=== PATIENT | female | born 1995 | race Hispanic/Latino ===

== ENCOUNTER 2017-12-04 17:58 | Emergency (ER) | payer BC ==
[2017-12-04 18:18] VITALS: BMI 20.9
[2017-12-04] MEDS ORDERED: Sodium Chloride 0.9% 1,000 ML IV STA ×2 (18:24→21:18)
--- NOTE | 2017-12-04 18:26 | ED PDOC ---
Arrival/HPI - General Chief Complaint: Abdominal Pain Time Seen by Provider: 12/04/17 18:23 Historian: Patient, Parent - History of Present Illness Narrative History of Present Illness (Text): 12/04/17 18:27 22 y/o female, pmh including renal stone, nkda, c/o acute onset of rt. flank and rt. lower quadrant pain started this morning. Pt. that she has sharp rt. flank pain, radiating to the RLQ region, on and off, associated with urinary frequency, no fever or chills, no headache or night sweat, no dizziness, no palpitation, no rash, no pelvic pain, no vaginal discharge or bleeding, no other medical or psychological complaints. Past Medical History - Provider Review Nursing Documentation Reviewed: Yes - Tetanus Immunization Tetanus Immunization: Unknown - Past Medical History Past Medical History: No Previous - Psychiatric Hx Substance Use: No - Past Surgical History Past Surgical History: No Previous - Suicidal Assessment Feels Threatened In Home Enviroment: No Family/Social History - Physician Review Nursing Documentation Reviewed: Yes Family/Social History: Unknown Family HX Smoking Status: Never Smoked Hx Alcohol Use: No Hx Substance Use: No Hx Substance Use Treatment: No Allergies/Home Meds Allergies/Adverse Reactions: Allergies No Known Allergies Allergy (Verified 12/04/17 18:18) Home Medications: Home Meds Medication Instructions Recorded Confirmed Norgestrel-Ethinyl Estradiol 1 tab PO DAILY 12/04/17 12/04/17 [Oki-Brxomwlf-21 Tablet] Phenazopyridine HCl [Pyridium] 200 mg PO TID 12/04/17 12/04/17 Sulfamethoxazole/Trimethoprim 1 tab PO Q12H 12/04/17 12/04/17 [Bactrim DS Tab] Review of Systems - Review of Systems Constitutional: absent: Fatigue, Fevers Eyes: absent: Vision Changes ENT: absent: Hearing Changes Respiratory: absent: SOB, Cough Cardiovascular: absent: Chest Pain Gastrointestinal: Abdominal Pain. absent: Diarrhea, Nausea, Vomiting Genitourinary Female: Frequency. absent: Dysuria, Hematuria, Urine Output Changes, Vaginal Bleeding, Vaginal Discharge Musculoskeletal: Back Pain. absent: Arthralgias, Neck Pain, Joint Swelling Skin: absent: Rash, Pruritis Neurological: absent: Headache, Dizziness Psychiatric: absent: Anxiety, Depression, Suicidal Ideation Physical Exam Vital Signs Reviewed: Yes Vital Signs Temp Pulse Resp BP Pulse Ox 12/04/17 18:20 99.3 F 104 H 20 125/66 99 Temperature: Afebrile Blood Pressure: Normal Pulse: Tachycardic Respiratory Rate: Normal Appearance: Positive for: Well-Appearing Pain Distress: Severe Mental Status: Positive for: Alert and Oriented X 3 - Systems Exam Head: Present: Atraumatic, Normocephalic Pupils: Present: PERRL Extroacular Muscles: Present: EOMI Conjunctiva: Present: Normal Mouth: Present: Moist Mucous Membranes Neck: Present: Normal Range of Motion Respiratory/Chest: Present: Clear to Auscultation, Good Air Exchange. No: Respiratory Distress, Accessory Muscle Use Cardiovascular: Present: Regular Rate and Rhythm, Normal S1, S2. No: Murmurs Abdomen: Present: Tenderness (rt. flank). No: Distention, Peritoneal Signs, Rebound, Guarding Back: Present: Normal Inspection, CVA Tenderness (rt. flank). No: Midline Tenderness, Paraspinal Tenderness, Pain with Leg Raise, Decubitus Ulcer Upper Extremity: Present: Normal Inspection. No: Cyanosis, Edema Lower Extremity: Present: Normal Inspection, Neurovascularly Intact. No: Edema Neurological: Present: GCS=15, CN II-XII Intact, Speech Normal, Motor Func Grossly Intact, Gait Normal, Memory Normal Skin: Present: Warm, Dry, Normal Color. No: Rashes Psychiatric: Present: Alert, Oriented x 3, Normal Insight, Normal Concentration Medical Decision Making ED Course and Treatment: 12/04/17 18:33 -Labs/ua/urine hcg -CT abdomen and pelvis -IV toradol/fluid -Observe and reassess 12/04/17 21:19 -Urine hcg is negative -CT abdomen and pelvis show 3 mm calculus is noted at the right UVJ producing mild hydroureteronephrosis. There is delay right urogram, comparing to the left side. -Labs show wbc 14.7 -UA show +UTI, IV rocephine ordered. -Pt. feels still having pain, morphine 2mg IV ordered with IV rocephine/fluid/flomax/strainer for stone. -Pt. is having chills in the ER and I told her that I am concerning for her which this is not a good sign but she said she is tired?. -I discussed with the patient about the labs and radiology study, recommend admission for IV hydration/antibiotic and urologist evaluation. Pt. stated that she would need to think about it. 12/04/17 22:25 -I checked the [facility] report, and I would give percocet for her pain control. -Pt. refused to be admitted, risks and benefits explained as she has infected stone. Pt. stated that she feels well, no pain, no need to be admitted, discussed with her mother as well and mother agreed with her decision. AMA ER The patient refuses to stay in the Emergency Room (ER) to continue the care and wishes to leave the emergency department against my medical advice. Patient was told that staying in the ER is necessary and a full explanation of the reasons why was given, and understood by the patient with alert and oriented x4. The risk of leaving were explained in laymans term and including but not limited to cystitis/pylonephritis, infected stone, abscess, bacteremia, sepsis, organ failure, peritonitis, pain, worsening of condition, permanent disability and from an undiagnosed or untreated condition. The patient accepts these risks, and is in my judgment is competent and capable of understanding the clinical situation and explanation of the risk of leaving. The patient is able to verbally repeated me back the above explained risks and benefits back to me, and verbally expressed understanding. Patient was given the opportunity to ask questions and change mind. The patient was instructed regarding the best care for the present symptoms, and to follow up as soon as possible with the primary care doctor including specialist or return to the emergency department at any time for continuing care. You sign out against medical advice. You are given keflex/flomax/percocet for severe pain and motrin for mild to moderate pain/strainer for stone but this is not the best care for you. You were recommended to be admitted admitted for IV antibiotic and specialist consult but you refused. Please stay hydrated, follow up with your own pmd and urologist as soon as possible, return to the ER for any new or worsening signs or symptoms. - Lab Interpretations I have reviewed the lab results: Yes - RAD Interpretation Radiology Orders: 12/04/17 18:24 ABD & PELVIS W/O PO OR IV CONT [CT] Stat COMPARISON: None provided. FINDINGS: LUNG BASES: The lung bases appear clear. No pleural effusions are seen. LIVER: Unremarkable. GALLBLADDER AND BILE DUCTS: The gallbladder appears within normal limits. No radioopaque gallstones are seen. No biliary ductal dilatation is evident. PANCREAS: Unremarkable. SPLEEN: Unremarkable. ADRENAL GLANDS: Unremarkable. KIDNEYS, URETERS, AND BLADDER: 3 mm calculus is noted at the right UVJ producing mild hydroureteronephrosis. There is delay right urogram, comparing to the left side. STOMACH AND BOWEL: Unremarkable appearance of the stomach and bowel. No evidence of bowel obstruction. No evidence suggesting enteritis or colitis. APPENDIX: No evidence of acute appendicitis on CT examination. PERITONEUM: No free fluid. No free air. LYMPH NODES: No lymphadenopathy is evident. REPRODUCTIVE: Unremarkable as visualized. VASCULATURE: No evidence of abdominal aortic aneurysm. BONES: No aggressive appearing osseous lesion. No acute osseous pathology evident. IMPRESSION: 3 mm calculus is noted at the right UVJ producing mild hydroureteronephrosis. There is delay right urogram, comparing to the left side. Electronically signed on Dec 04, 2017 9:06:47 PM EDT by: Jamie Jamil M.D., ADY Certified By [facility] Fellowship Trained MRI and CT Specialist Sheet Metal Welder: Radiologist - PA / ROLLER MILL OPERATOR / Resident Statement MD/DO has reviewed & agrees with the documentation as recorded. Disposition/Present on Arrival - Present on Arrival Any Indicators Present on Arrival: No History of DVT/PE: No History of Uncontrolled Diabetes: No Urinary Catheter: No History of Decub. Ulcer: No History Surgical Site Infection Following: None - Disposition Have Diagnosis and Disposition been Completed?: Yes Diagnosis: Ureter colic, Hydronephrosis, UTI (urinary tract infection), Non compliance with medical treatment, Leukocytosis Disposition: AGAINST MEDICAL ADVICE Disposition Time: 22:26 Patient Problems: Current Active Problems Problem Status Onset Urinary tract infection Acute Ureter colic Acute Hydronephrosis Acute Non compliance with medical treatment Acute Leukocytosis Acute Condition: STABLE Additional Instructions: You sign out against medical advice. You are given keflex/flomax/percocet for severe pain and motrin for mild to moderate pain/strainer for stone but this is not the best care for you. You were recommended to be admitted admitted for IV antibiotic and specialist consult but you refused. Please stay hydrated, follow up with your own pmd and urologist as soon as possible, return to the ER for any new or worsening signs or symptoms. Prescriptions: Cephalexin [cephalexin] 500 mg PO QID #28 cap Ibuprofen [Motrin Tab] 600 mg PO QID PRN #30 tab PRN Reason: Other oxyCODONE/Acetaminophen [Percocet 5/325 mg Tab] 1 tab PO QID PRN #15 tab PRN Reason: Other Tamsulosin [Flomax] 0.4 mg PO DAILY #10 cap Referrals: Dean Camara MD [Staff Provider] - Follow up with primary Alia BHATIA,Elmer Blanco MD [Staff Provider] - Follow up with primary Forms: [employer] (Cameroonian), WORK NOTE
[2017-12-04] MEDS ORDERED: Iohexol 350 MG/100 ML VIAL ONE (18:35)
[2017-12-04 19:10] LABS: BASO # 0.01 K/mm3 (0.0-2.0); BASO % 0.1 % (0.0-3.0); EOS % 0.2 % (1.5-5.0); GRAN # 12.72 (1.4-6.5); GRAN % 86.4 % (50.0-68.0); HEMOGLOBIN 12.9 g/dL (12.0-16.0); LYMPH # 1.4 (1.2-3.4); LYMPH % 9.4 % (22.0-35.0); MEAN CELL VOLUME 87.1 fl (80.0-105.0); MEAN CORPUSCULAR HEMOGLOBIN 29.2 pg (25.0-35.0); MEAN CORPUSCULAR HGB CONC 33.5 g/dl (31.0-37.0); MEAN PLATELET VOLUME 10.3 fl (7.0-11.0); MONO # 0.6 (0.1-0.6); MONO % 3.9 % (1.0-6.0); RBC 4.42 10^6/uL (3.5-6.1); RED CELL DISTRIBUTION WIDTH 12.7 % (11.5-14.5); WHITE BLOOD COUNT 14.7 10^3/uL (4.5-11.0)
[2017-12-04 19:32] LABS: ALBUMIN 4.6 g/dL (3.0-4.8); BLOOD UREA NITROGEN 7 mg/dL (7-21); CALCIUM 9.3 mg/dL (8.4-10.5); GFR NON-AFRICAN AMERICAN > 60
[2017-12-04 19:33] LABS: ALB/GLOB RATIO 1.3 (1.1-1.8); ALT/SGPT 19 U/L (7-56); AST/SGOT 26 U/L (14-36)
[2017-12-04 19:52] LABS: PH,URINE 6.5 (4.7-8.0); URINE APPEARANCE SLIGHT-CLOUDY (CLEAR); URINE BILIRUBIN NEGATIVE (NEGATIVE); URINE BLOOD MODERATE (NEGATIVE); URINE COLOR DARK YELLOW (YELLOW); URINE GLUCOSE (UA) 100 mg/dL (NEGATIVE); URINE LEUKOCYTE ESTERASE NEGATIVE Leu/uL (NEGATIVE); URINE PROTEIN 30 mg/dL (<30 mg/dL)
[2017-12-04 19:56] LABS: URINE EPITHELIAL CELLS 0 - 2 /hpf (0-5); URINE WBC 0 - 2 /hpf (0-6)
[2017-12-04 19:57] LABS: URINE BACTERIA TRACE (NEG)
[2017-12-04 20:50] VITALS: RESP 18
[2017-12-04] MEDS ORDERED: cefTRIAXone 1 gm 1 GM/100 ML BAG IVPB STA (21:18)
[2017-12-04] MEDS ORDERED: Morphine 2 mg/ml ISec IVP STA (21:18)
[2017-12-04 22:31] VITALS: BP 105/68; PULSE 96; TEMP 99; O2SAT 100
--- NOTE | 2017-12-05 08:36 | CT ---
Date of service: 12/04/2017 PROCEDURE: CT Abdomen and Pelvis with contrast HISTORY: RLQ and rt. flank pain COMPARISON: 12/26/2013. TECHNIQUE: CT scan of the abdomen and pelvis was performed after administration of intravenous contrast. Oral contrast was not administered. Coronal and sagittal reformatted images were obtained. Contrast dose: 100 mL Omnipaque 350 Radiation dose: Total exam DLP = 233.55 mGy-cm. This CT exam was performed using one or more of the following dose reduction techniques: Automated exposure control, adjustment of the mA and/or kV according to patient size, and/or use of iterative reconstruction technique. FINDINGS: LOWER THORAX: The visualized lungs are clear. LIVER: Normal in size with homogeneous enhancement. No gross lesion or ductal dilatation. GALLBLADDER AND BILE DUCTS: No calcified gallstones. PANCREAS: Normal in size with homogeneous enhancement. No gross lesion or ductal dilatation. SPLEEN: Normal in size and appearance. ADRENALS: No discrete nodule. KIDNEYS AND URETERS: Normal in size with homogeneous enhancement. There is a 3 mm stone at the right UV junction, mild diffuse dilatation of the right ureteral, mild hydronephrosis and mild perinephric fat stranding. No left nephrolithiasis. No solid mass. VASCULATURE: No aortic aneurysm. BOWEL: The small bowel loops are normal in caliber. No obstruction. No gross mural thickening. APPENDIX: No inflammatory changes in the right lower quadrant. PERITONEUM: No free fluid. No free air. LYMPH NODES: No enlarged lymph nodes. BLADDER: Decompressed. REPRODUCTIVE: The uterus is normal in size. BONES: No acute fracture. Within normal limits for the patient's age. OTHER FINDINGS: None. IMPRESSION: 3 mm stone at the right UV junction, mild right hydroureteronephrosis and perinephric inflammatory changes. A preliminary report was provided by [employer].
== END 2017-12-04 23:30 | disposition left against medical advice (07) ==
LOC: ED 17:58
DX: N13.2 Hydronephrosis with renal and ureteral calculous obstruction (principal); N39.0 Urinary tract infection, site not specified; Z91.19 Patient's noncompliance with other medical treatment and regimen
CPT/HCPCS: 74177; 80053; 81001; 83735; 85025; 87086; 96374; 96375; 99285; J0696; J1885; J2270; J7030; Q9967